=== PATIENT | female | born 1975 | race Caucasian/White ===

== ENCOUNTER 2021-10-12 01:20 | Observation (INO) | payer OTHER ==
[2021-10-12] MEDS ORDERED: ACETAMINOPHEN 325 MG TABLET (FP) PO ONE (03:10)
[2021-10-12] MEDS ORDERED: METOCLOPRAMIDE HCL INJECTION 10 MG/2 ML VIAL IVPUSH ONE (03:21)
[2021-10-12] MEDS ORDERED: SODIUM CHLORIDE 0.9% 500 ML INFUS.BAG IV ONE (03:21)
[2021-10-12] MEDS ORDERED: ACETAMINOPHEN 325 MG TABLET (FP) ONE (03:22)
[2021-10-12] MEDS ORDERED: METOCLOPRAMIDE HCL INJECTION 10 MG/2 ML VIAL ONE (03:29)
[2021-10-12 04:00] LABS: BASO % 0.5 % (0-2.0); EOS % 1.8 % (0-4.5); HEMATOCRIT 31.2 % (32.4-45.2); HEMOGLOBIN 10.4 GM/dL (10.7-15.3); LYMPH % 25.7 % (8-40); MCH 24.7 pg (25.7-33.7); MCHC 33.4 g/dl (32.0-36.0); MEAN PLT VOLUME 8.1 fl (7.5-11.1); MONO % 6.9 % (3.8-10.2); NEUT % 65.1 % (42.8-82.8); PLATELET COUNT 260 10^3/uL (134-434); RBC 4.22 M/mm3 (3.60-5.2); RDW 18.5 % (11.6-15.6)
[2021-10-12 04:17] LABS: INR 0.97 (0.83-1.09); PROTHROMBIN TIME (PATIENT) 11.1 SEC (9.7-13.0)
[2021-10-12 04:20] LABS: ACTIVATED PTT 29.2 SECONDS (25.2-36.5)
[2021-10-12 04:33] LABS: CALCIUM 8.3 mg/dL (8.5-10.1)
[2021-10-12 04:34] LABS: ALBUMIN 3.3 g/dl (3.4-5.0); BLOOD UREA NITROGEN 10.1 mg/dL (7-18)
[2021-10-12 04:37] LABS: CREATININE 0.6 mg/dL (0.55-1.3)
[2021-10-12 04:38] LABS: BILIRUBIN,TOTAL 0.6 mg/dL (0.2-1)
[2021-10-12] MEDS: ENOXAPARIN NA (PORCINE) 40 MG/0.4 ML DISP.SYRIN SQ SCH (11:08)
[2021-10-12] MEDS ORDERED: ENOXAPARIN NA (PORCINE) 40 MG/0.4 ML DISP.SYRIN SQ ONE (11:09)
[2021-10-12 16:36] LABS: URINE APPEARANCE CLEAR; URINE BILIRUBIN NEGATIVE (NEGATIVE); URINE COLOR YELLOW; URINE GLUCOSE (UA) NEGATIVE (NEGATIVE); URINE KETONE NEGATIVE (NEGATIVE); URINE LEUK ESTERASE NEGATIVE (NEGATIVE); URINE NITRITE NEGATIVE (NEGATIVE); URINE PROTEIN NEGATIVE (NEGATIVE); URINE UROBILINOGEN 0.2 mg/dL (0.2-1.0)
[2021-10-12 23:48] VITALS: BMI 31.3
[2021-10-13 07:38] LABS: BASO % 0.5 % (0-2.0); EOS % 1.7 % (0-4.5); HEMATOCRIT 32.7 % (32.4-45.2); HEMOGLOBIN 10.4 GM/dL (10.7-15.3); LYMPH % 28.8 % (8-40); MCHC 31.9 g/dl (32.0-36.0); MEAN CELL VOLUME 75.3 fl (80-96); MEAN PLT VOLUME 8.1 fl (7.5-11.1); MONO % 7.1 % (3.8-10.2); NEUT % 61.9 % (42.8-82.8); PLATELET COUNT 260 10^3/uL (134-434); RBC 4.34 M/mm3 (3.60-5.2); RDW 18.8 % (11.6-15.6); WHITE BLOOD COUNT 7.1 K/mm3 (4.0-10.0)
[2021-10-13 07:42] LABS: INR 1.08 (0.83-1.09); PROTHROMBIN TIME (PATIENT) 12.4 SEC (9.7-13.0)
[2021-10-13 07:45] LABS: ACTIVATED PTT 29.3 SECONDS (25.2-36.5)
[2021-10-13 07:56] LABS: ALBUMIN 3.1 g/dl (3.4-5.0); BLOOD UREA NITROGEN 9.8 mg/dL (7-18); MAGNESIUM 2.3 mg/dL (1.8-2.4)
[2021-10-13 07:57] LABS: CHOLESTEROL 168 mg/dL (50-200)
[2021-10-13 07:58] LABS: LDL CHOLESTEROL (ONLY SJRH) 113 mg/dL (5-100); TRIGLYCERIDES 159 mg/dL (0-150)
[2021-10-13 07:59] LABS: CREATININE 0.6 mg/dL (0.55-1.3); PHOSPHOROUS 3.2 mg/dL (2.5-4.9)
[2021-10-13 08:00] LABS: HDL CHOLESTEROL 36 mg/dL (40-60)
[2021-10-13 08:01] LABS: BILIRUBIN,TOTAL 0.4 mg/dL (0.2-1); TOT PROT 6.7 g/dl (6.4-8.2)
[2021-10-13] MEDS: ENOXAPARIN NA (PORCINE) 40 MG/0.4 ML DISP.SYRIN SQ SCH (09:57)
[2021-10-13] MEDS ORDERED: LOSARTAN POTASSIUM 50 MG TABLET PO SCH (10:00)
[2021-10-13] MEDS ORDERED: ASPIRIN COATED 81 MG TABLET.EC PO SCH (10:00)
[2021-10-13 15:25] VITALS: RESP 20; TEMP 98.2
[2021-10-13 19:13] VITALS: BP 124/75; PULSE 66
== END 2021-10-13 19:02 | disposition home or self-care (01) ==
LOC: JER 01:20 → JERBED 05:14 → J4W 23:35
PROVIDERS: ADMIT Internal Medicine; ATTEND Internal Medicine
PROC: 3E023GC Introduction of Other Therapeutic Substance into Muscle, Percutaneous Approach (ICD-10-PCS; principal; 2021-10-12)
PROC: 3E033GC Introduction of Other Therapeutic Substance into Peripheral Vein, Percutaneous Approach (ICD-10-PCS; 2021-10-12)
PROC: 3E0337Z Introduction of Electrolytic and Water Balance Substance into Peripheral Vein, Percutaneous Approach (ICD-10-PCS; 2021-10-12)
DX: R07.9 Chest pain, unspecified (principal); R73.03 Prediabetes; I10 Essential (primary) hypertension; R06.02 Shortness of breath; K29.70 Gastritis, unspecified, without bleeding; E66.8 Other obesity; Z68.31 Body mass index [BMI] 31.0-31.9, adult
CPT/HCPCS: 36415; 71046-TC-FY; 80053; 80061; 81003; 82728; 83036; 83540; 83550; 83735; 84100; 84443; 84484; 85025; 85045; 85610; 85730; 87086; 93005; 93010; 93306-TC; 96372; 96374; 99285-25; C9803-CS; G0378; U0003; U0005